=== PATIENT | female | born 1975 | race Caucasian/White ===

== ENCOUNTER 2019-08-10 08:41 | Emergency (ER) | payer SELFPAY ==
--- NOTE | 2019-08-10 08:52 | EDM.PDOC ---
ED HPI GENERAL MEDICAL PROBLEM - General Chief Complaint: Gastrointestinal Problem Stated Complaint: BLOOD IN STOOL/VOMITING/DIARRHEA/PAIN Time Seen by Provider: 08/10/19 08:51 Source of Information: Reports: Patient History Limitations: Reports: No Limitations - History of Present Illness INITIAL COMMENTS - FREE TEXT/NARRATIVE: 43-year-old female presents the ED with recurrent nausea and vomiting and diarrhea development overnight. There is some blood in the stool. She has alternating hard constipated stools with diarrhea stools. She is being worked up at present for peptic ulcer disease as well as sludge within her gallbladder. She is booked for upper GI endoscopy tomorrow with . Been up all night vomiting and having diarrhea. Diffuse abdominal cramps but mostly the pain is right upper quadrant epigastric rating around the right costal margin into her right flank area. Characteristic of biliary colic. She did have potato soup yesterday which didn't seem to agree with her. Emesis overnight has been all bilious without blood. Onset: Sudden Onset Date: 08/09/19 Onset Time: 20:00 Duration: Hour(s): Location: Reports: Abdomen Quality: Reports: Ache (Recurrent nausea vomiting and severe right upper quadrant abdominal pain associated diarrhea with flecks of blood in it.), Pressure, Throbbing, Other Severity: Severe (Colicky component to the right upper quadrant abdominal pain) Improves with: Reports: None Worsens with: Reports: Other Associated Symptoms: Reports: No Other Symptoms, Loss of Appetite, Malaise, Nausea/Vomiting, Other (Diarrhea stools 4 overnight.). Denies: Confusion, Chest Pain, Cough, cough w sputum, Diaphoresis, Fever/Chills, Headaches, Rash, Shortness of Breath, Syncope Treatments PERSONNEL ADVISER: Reports: Other (see below) (None.) Right Upper Abdominal Pain Score (Numeric/FACES): 9 - Related Data Allergies Allergy/AdvReac Type Severity Reaction Status Date / Time sumatriptan [From Imitrex] Allergy Respiratory Verified 08/10/19 08:50 Distress Home Meds: Home Meds Dicyclomine [Bentyl] 20 mg PO Q6H PRN #8 tablet 08/10/19 [Rx] Lisinopril 10 mg PO DAILY 08/10/19 [History] Ondansetron [Zofran] 4 mg BUCCAL Q6H PRN #8 tab 08/10/19 [Rx] Ranitidine HCl [Zantac 75] 75 mg PO DAILY 08/10/19 [History] Sucralfate [Carafate] 1 gm PO DAILY 08/10/19 [History] oxyCODONE HCl/Acetaminophen [Percocet 5-325 mg Tablet] 1 - 2 each PO Q4H PRN # 12 tablet 08/10/19 [Rx] Past Medical History Cardiovascular History: Reports: Hypertension Gastrointestinal History: Reports: GERD, PUD. Denies: Cholelithiasis ( Diagnosis sludge in her gallbladder.) Social & Family History - Living Situation & Occupation Living situation: Reports: Single Occupation: Unemployed ED ROS GENERAL - Review of Systems Review Of Systems: See Below Constitutional: Reports: Chills, Malaise, Weakness, Fatigue, Decreased Appetite , Weight Loss. 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 No: Lymphadenopathy (R), Tender Midline Respiratory/Chest: No Respiratory Distress, Lungs Clear, Normal Breath Sounds, No Accessory Muscle Use, Chest Non-Tender Cardiovascular: Normal Peripheral Pulses, No Edema, No Gallop, No Murmur, No Rub , Tachycardia GI/Abdominal Exam: No Organomegaly, Guarding, Tender, Abnormal Bowel Sounds ( Bowel sounds are quite active in all 4 quadrants.), Other (Positive Newberry's sign.). No: Rigid, Rebound (Very tender to palpation epigastric right upper quadrant of the abdomen with guarding) Extremities: Normal Range of Motion, Non-Tender Neurological: Alert, Oriented, CN II-XII Intact, Normal Cognition, No Motor/ Sensory Deficits Psychiatric: Anxious, Other Skin Exam: Warm, Dry, Intact (In a lot of pain.), Normal Color, No Rash Course - Vital Signs Last Recorded V/S: Last Vital Signs Temp 37.0 C 08/10/19 10:20 Pulse 76 08/10/19 10:20 Resp 16 08/10/19 10:20 BP 121/78 08/10/19 10:20 Pulse Ox 98 08/10/19 10:20 - Orders/Labs/Meds Labs: Laboratory Tests 08/10/19 08/10/19 08/10/19 Range/Units 09:05 09:05 10:05 WBC 8.03 (3.98-10.04) K/mm3 RBC 5.01 (3.98-5.22) M/mm3 Hgb 12.9 (11.2-15.7) gm/dl Hct 40.1 (34.1-44.9) % MCV 80.0 (79.4-94.8) fl MCH 25.7 (25.6-32.2) pg MCHC 32.2 (32.2-35.5) g/dl RDW Std Deviation 38.1 (36.4-46.3) fL Plt Count 383 H (182-369) K/mm3 MPV 11.2 (9.4-12.3) fl Neutrophils % (Manual) 65 H (40-60) % Band Neutrophils % 0 (0-10) % Lymphocytes % (Manual) 27 (20-40) % Atypical Lymphs % 0 % Immat Monocytes % (Man) 0 Monocytes % (Manual) 6 (2-10) % Eosinophils % (Manual) 1 (0.7-5.8) % Basophils % (Manual) 1 (0.1-1.2) Metamyelocytes % 0 Myelocytes % 0 Promyelocytes % 0 Blast Cells % 0 Plasma Cell % (Manual) 0 Nucleated RBCs 0.0 % Platelet Estimate Adequate RBC Morph Comment Normal Sodium 141 (136-145) mEq/L Potassium 4.1 (3.5-5.1) mEq/L Chloride 104 (98-107) mEq/L Carbon Dioxide 26 (21-32) mEq/L Anion Gap 15.1 H (5-15) BUN 9 (7-18) mg/dL Creatinine 0.9 (0.55-1.02) mg/dL Est Cr Clr Drug Dosing 75.45 mL/min Estimated GFR (MDRD) > 60 (>60) mL/min BUN/Creatinine Ratio 10.0 L (14-18) Glucose 97 (74-106) mg/dL Calcium 9.1 (8.5-10.1) mg/dL Magnesium 2.0 (1.8-2.4) mg/dl Total Bilirubin 0.3 (0.2-1.0) mg/dL GGT 11 (5-55) U/L AST 16 (15-37) U/L ALT 23 (14-59) U/L Alkaline Phosphatase 86 (46-116) U/L C-Reactive Protein < 0.2 (<1.0) mg/dL Total Protein 7.1 (6.4-8.2) g/dl Albumin 4.0 (3.4-5.0) g/dl Globulin 3.1 gm/dL Albumin/Globulin Ratio 1.3 (1-2) Lipase 191 (73-393) U/L Urine Color Yellow (Yellow) Urine Appearance Clear (Clear) Urine pH 7.0 (5.0-8.0) Ur Specific Gautier 1.010 (1.005-1.030) Urine Protein Negative (Negative) Urine Glucose (UA) Negative (Negative) Urine Ketones Negative (Negative) Urine Occult Blood Negative (Negative) Urine Nitrite Negative (Negative) Urine Bilirubin Negative (Negative) Urine Urobilinogen 0.2 (0.2-1.0) Ur Leukocyte Esterase Negative (Negative) Urine RBC Not seen (0-5) /hpf Urine WBC Not seen (0-5) /hpf Ur Squamous Epith Cells Not seen (0-5) /hpf Urine Bacteria Not seen (FEW) /hpf Urine Mucus Not seen (FEW) /hpf Meds: Medications Discontinued Medications Generic Name Dose Route Start Last Admin Trade Name Freq PRN Reason Stop Dose Admin Hydromorphone HCl 1 mg 08/10/19 08:57 08/10/19 09:04 Dilaudid IVPUSH 08/10/19 08:58 1 mg ONETIME ONE Administration Hyoscyamine 0.125 mg 08/10/19 08:58 08/10/19 09:04 Hyomax-Sl SL 08/10/19 08:59 0.125 mg ONETIME ONE Administration Dextrose/Lactated Ringer's 1,000 mls @ 999 mls/hr 08/10/19 09:00 08/10/19 09: 04 Dextrose 5%-Lactated Ringers IV 999 mls/hr ASDIRECTED ESTEVAN Administration Metoclopramide HCl 7.5 mg 08/10/19 08:57 08/10/19 09:04 Reglan IVPUSH 08/10/19 08:58 7.5 mg ONETIME ONE Administration - Radiology Interpretation Free Text/Narrative:: 42-year-old female presents to the ED with a host of symptoms. I history she's been having positive biliary colic and is getting this looked into. She has biliary sludge within her gallbladder but no defined stones. She also apparently has peptic ulcer disease and is being treated with ranitidine and sucralfate at present. She is booked for upper GI endoscopy tomorrow. She states since eating some potato soup yesterday and seemed to set up her gallbladder and she presents with severe epigastric right upper quadrant abdominal pain radiating along the right costal margin to the right flank. Associated nausea and vomiting of bilious material 6 overnight. 2 diarrhea stools with flecks of blood noted. But not near as bad as what she's experienced in the past. There is no melena. Port stools have been a combination of constipation and diarrhea. She is afebrile. Plan IV D5 Ringer's lactate at open. Given Reglan 7.5 mg IV with Dilaudid 1 mg IV for acute pain relief from her gallbladder. Routine labs to be performed. Given Levsin 0.125 mg sublingual to see if this will help alleviate painful bit sooner than the Dilaudid. - Re-Assessments/Exams Free Text/Narrative Re-Assessment/Exam: 08/10/19 09:52White count is 8.03 with 65% neutrophils and no band cells reported. Hemoglobin is 12.9 with hematocrit of 40.1. MCV is 80. It is 383,000. Patient states the nausea settle down and the pain is much improved. 08/10/19 10:11 Chemistry shows a sodium of 141 potassium 4.1 chloride 104 bicarbonate 26. And a gap is 15.1. BUN is 9 with a creatinine of 0.9. GFR remains greater than 60. Glucose is 97 with a calcium of 9.1. Magnesium is 2.0. Total bilirubin is 0.3 liver function otherwise normal. GTT is pending. C- reactive protein is less than 0.2. Total protein 7.1 albumin 4.0 lipase is normal at 191. 08/10/19 10:19 feeling much improved after a liter of fluids. Going to discharge her home with Zofran 4 mg sublingually every 4-6 hours when necessary enteric arrest nausea vomiting. Bentyl 20 mg every 6 hours needed for relief of abdominal pain cramping. Tabs 5/325 mg one or 2 every 4-6 hours needed for relief of severe pain related to gallbladder attack. A day diet will be mostly clear fluids to advance to light diet such as turkey rice chicken noodle soup first supper tonight. She has to be nothing by mouth after midnight for her upper GI endoscopy tomorrow. Departure - Departure Time of Disposition: 10:20 Disposition: Home, Self-Care 01 Condition: Fair Clinical Impression: Biliary colic symptom, Intractable nausea and vomiting Diarrhea Qualifiers: Diarrhea type: due to malabsorption Qualified Code(s): K90.9 - Intestinal malabsorption, unspecified - Discharge Information *PRESCRIPTION DRUG MONITORING PROGRAM REVIEWED*: No *COPY OF PRESCRIPTION DRUG MONITORING REPORT IN PATIENT JAMES: No Prescriptions: Dicyclomine [Bentyl] 20 mg PO Q6H PRN #8 tablet PRN Reason: Abdominal cramps/diarrhea Ondansetron [Zofran] 4 mg BUCCAL Q6H PRN #8 tab PRN Reason: nausea or vomiting oxyCODONE HCl/Acetaminophen [Percocet 5-325 mg Tablet] 1 - 2 each PO Q4H PRN # 12 tablet PRN Reason: pain relief. Instructions: Biliary Colic, Adult, Nausea and Vomiting, Adult Referrals: Hermelinad Roque PA-C [Primary Care Provider] - Forms: ED Department Discharge, ED Return to Work/School Form Additional Instructions: Evaluation the emergency room this morning regards to intractable nausea and vomiting that is gone on all night long with bilious emesis primarily. Emesis precipitated by right upper quadrant epigastric abdominal pain suspicious for biliary colic. Had an ultrasound which did not confirm stones but suggested sludge. HIDA scan is probably in order to see if the gallbladder is functioning normally. An upper GI endoscopy which is to be performed tomorrow. He was to rule out peptic ulcer disease and/or H. pylori infection. You're treated with a liter of IV fluids in the emergency department and medications Reglan 7.5 mg to stop vomiting and Dilaudid 1 mg IV for relief of abdominal pain. His diet today to be clear fluids such as Gatorade/Powerade. Dense diet as tolerated to crackers then bread with jam on it etc. May advance to soup broth or turkey rice /chicken noodle soup for supper. If nausea returns to take Zofran 4 mg under the tongue every 4-6 hours for nausea vomiting relief. Try Bentyl 20 mg every 6 hours as needed for relief of abdominal pain. If this fails within the hour take Percocet tabs 5/325 milligram tablet--one or 2 tablets every 4-6 hours necessary for pain relief. Nothing to eat after midnight in preparation for upper GI endoscopy tomorrow.
[2019-08-10] MEDS ORDERED: Metoclopramide 10 MG/2 ML SDV IVPUSH ONE (08:57)
[2019-08-10] MEDS ORDERED: HYDROmorphone 1 MG/ML Syringe IVPUSH ONE (08:57)
[2019-08-10] MEDS ORDERED: Hyoscyamine 0.125 MG Tab.SL SL ONE (08:58)
[2019-08-10] MEDS ORDERED: Dextrose 5%-Lactated Ringers 1,000 ML IV SCH (09:00)
== END 2019-08-10 10:31 | disposition home or self-care (01) ==
LOC: JD.ED 08:41
DX: R11.2 Nausea with vomiting, unspecified (principal); R10.11 Right upper quadrant pain; R10.13 Epigastric pain; K90.9 Intestinal malabsorption, unspecified; I10 Essential (primary) hypertension; K21.9 Gastro-esophageal reflux disease without esophagitis; K27.9 Peptic ulcer, site unspecified, unspecified as acute or chronic, without hemorrhage or perforation; Z88.8 Allergy status to other drugs, medicaments and biological substances; Z79.899 Other long term (current) drug therapy
CPT/HCPCS: 36415; 80053; 81001; 82977; 83690; 83735; 85007; 85027; 86140; 96361; 96374; 96375; 99284; A9270; J1170; J2765; J7042